=== PATIENT | female | born 1995 | race Caucasian/White ===

== ENCOUNTER → 2016-08-13 | Outpatient (CLI) | payer BC ==
[2016-08-13 12:00] LABS: URINE APPEARANCE CLEAR (CLEAR); URINE BILIRUBIN NEG (NEG); URINE COLOR YELLOW; URINE NITRITE POS (NEG); URINE SPECIFIC GRAVITY 1.021 (1.000-1.030); UROBILINOGEN NEG (NEG)
[2016-08-13 12:02] LABS: MANUAL MICROSCOPIC REQUIRED? NO; REVIEW REQ? NO
== END | disposition home or self-care (01) ==
LOC: C.LABSPEC 10:56
PROVIDERS: ATTEND Obstetrics & Gynecology
DX: Z34.00 Encounter for supervision of normal first pregnancy, unspecified trimester (principal)

== ENCOUNTER → 2016-08-20 | Outpatient (CLI) | payer BC ==
[2016-08-24 00:48] LABS: CHLAMYDIA TRACH RNA*** NOT DETECTED (NOT DETECTED); GC (NEIS GONORRHOEAE)RNA** NOT DETECTED (NOT DETECTED)
== END | disposition home or self-care (01) ==
LOC: C.LABSPEC 17:00
PROVIDERS: ATTEND Obstetrics & Gynecology
DX: Z34.00 Encounter for supervision of normal first pregnancy, unspecified trimester (principal)

== ENCOUNTER → 2016-08-20 | Outpatient (CLI) | payer BC ==
[2016-08-20 16:33] LABS: BASO % 0.3 %; BASO ABS # 0.03 K/uL (0-0.2); COMPLETE YES; HEMATOCRIT 39.4 % (37-47); IG% 0.3 %; LYMPH % 19.6 %; LYMPH ABS # 2.12 K/uL (1.2-3.4); MEAN CELL VOLUME 78.5 fL (80-100); MEAN CORPUSCULAR HEMOGLOBIN 27.1 pg (25-34); MEAN CORPUSCULAR HGB CONC 34.5 g/dl (32-36); MEAN PLATELET VOLUME 9.7 fL (7.4-10.4); MONO % 7.7 %; NEUT % 71.1 %; PLATELET COUNT 341 K/uL (130-400); RED BLOOD COUNT 5.02 M/uL (4.2-5.4); WHITE BLOOD COUNT 10.83 K/uL (4.8-10.8)
== END | disposition home or self-care (01) ==
LOC: C.LAB1850 15:13
PROVIDERS: ATTEND Obstetrics & Gynecology
DX: Z34.00 Encounter for supervision of normal first pregnancy, unspecified trimester (principal)

== ENCOUNTER → 2016-09-17 | Outpatient (CLI) | payer BC ==
[2016-09-17 18:19] LABS: URINE APPEARANCE TURBID (CLEAR); URINE BILIRUBIN NEG (NEG); URINE COLOR DK YELLOW; URINE EPITHELIAL CELL AUTO >30 /lpf (0-5); URINE NITRITE NEG (NEG); URINE SPECIFIC GRAVITY 1.031 (1.000-1.030); UROBILINOGEN NEG (NEG)
[2016-09-17 18:20] LABS: MANUAL MICROSCOPIC REQUIRED? NO; REVIEW REQ? NO
== END | disposition home or self-care (01) ==
LOC: C.LABSPEC 17:39
PROVIDERS: ATTEND Obstetrics & Gynecology
DX: O23.40 Unspecified infection of urinary tract in pregnancy, unspecified trimester (principal)

== ENCOUNTER → 2016-10-13 | Outpatient (CLI) | payer BC ==
[2016-10-13 17:27] LABS: GTGD 50 Grams
== END | disposition home or self-care (01) ==
LOC: C.LAB1850 15:08
PROVIDERS: ATTEND Obstetrics & Gynecology
DX: Z34.01 Encounter for supervision of normal first pregnancy, first trimester (principal)

== ENCOUNTER → 2016-11-03 | Outpatient (CLI) | payer BC, OTHER | END | disposition home or self-care (01) | LOC: C.LAB1850 08:04 | PROVIDERS: ATTEND Obstetrics & Gynecology | DX: O28.1 Abnormal biochemical finding on antenatal screening of mother (principal); Z3A.00 Weeks of gestation of pregnancy not specified ==

== ENCOUNTER → 2017-01-05 | Outpatient (CLI) | payer BC, OTHER ==
[2017-01-05 13:19] LABS: HEMATOCRIT 34.7 % (37-47)
[2017-01-05 15:31] LABS: URINE APPEARANCE CLOUDY (CLEAR); URINE BILIRUBIN NEG (NEG); URINE COLOR YELLOW; URINE EPITHELIAL CELL AUTO >30 /lpf (0-5); URINE NITRITE NEG (NEG); URINE PH >= 9.0 (4.5-7.5); URINE SPECIFIC GRAVITY 1.018 (1.000-1.030); UROBILINOGEN NEG (NEG)
[2017-01-05 15:34] LABS: MANUAL MICROSCOPIC REQUIRED? NO; REVIEW REQ? NO
== END | disposition home or self-care (01) ==
LOC: C.LAB1850 11:20
PROVIDERS: ATTEND Obstetrics & Gynecology
DX: Z34.03 Encounter for supervision of normal first pregnancy, third trimester (principal)

== ENCOUNTER → 2017-03-02 | Outpatient (CLI) | payer BC, OTHER | END | disposition home or self-care (01) | LOC: C.LABSPEC 10:20 | PROVIDERS: ATTEND Obstetrics & Gynecology | DX: Z34.03 Encounter for supervision of normal first pregnancy, third trimester (principal) ==

== ENCOUNTER 2017-03-28 06:21 | Inpatient (IN) | payer BC, OTHER ==
[~2017-03-28] VITALS: Ht 165.1 cm; Wt 114.5 kg
[2017-03-28 07:03] LABS: HEMATOCRIT 37.7 % (37-47); HEMOGLOBIN 12.3 g/dL (12.0-16.0); MEAN CELL VOLUME 77.6 fL (80-100); MEAN CORPUSCULAR HEMOGLOBIN 25.3 pg (25-34); MEAN CORPUSCULAR HGB CONC 32.6 g/dl (32-36); PLATELET COUNT 188 K/uL (130-400); RED CELL DISTRIBUTION WIDTH CV 14.2 % (11.5-14.5); RED CELL DISTRIBUTION WIDTH SD 39.9 fL (36.4-46.3); WHITE BLOOD COUNT 9.33 K/uL (4.8-10.8)
[2017-03-28 07:14] VITALS: Ht 165.1 cm; Wt 114.5 kg
[2017-03-28] MEDS ORDERED: PRENTAB26 PO (07:20)
[2017-03-28] MEDS ORDERED: LACTATED RINGER'S 1000ML 500 ML IV PRN ×2 (08:37→14:03)
[2017-03-28] MEDS ORDERED: OXYTOCIN 30 UNITS/500ML NSS IV PRN (08:45)
[2017-03-28] MEDS ORDERED: PATIENT'S ALLERGY INFO NEEDS ENTERED SCH (09:00)
[2017-03-28] MEDS: LACTATED RINGER'S 1000ML 1,000 ML IV SCH ×3 (10:00→21:51)
[2017-03-28] MEDS ORDERED: EpHEDrine SULFATE INJ 50 MG/ML AMP ONE (13:13)
[2017-03-28] MEDS ORDERED: BUPIVACAINE 0.25% 30 ML VIAL ONE (13:13)
[2017-03-28] MEDS ORDERED: FENTANYL 2MCG/ML ROPIV 1.25MG/ML 100ML BAG EPI ONE (13:15)
[2017-03-28] MEDS ORDERED: FENTANYL CITRATE INJ 50 MCG/1 ML 2 ML VIAL ONE (13:15)
[2017-03-28] MEDS ORDERED: NALOXONE HCL INJ 1 MG in SODIUM CHLORIDE 0.9% 1000ML 1,000 ML IV PRN (14:03)
[2017-03-28] MEDS ORDERED: ONDANSETRON INJ 2 MG/ML 2 ML VIAL IV PRN (14:15)
[2017-03-28] MEDS ORDERED: NALBUPHINE HCL INJ 10 MG/ML AMP IV PRN (14:15)
[2017-03-28] MEDS ORDERED: NALOXONE HCL INJ 0.4 MG/1 ML VIAL/CARP IV PRN (14:15)
[2017-03-28] MEDS ORDERED: DiphenhydrAMINE HCL 50 MG/ML VIAL IV PRN (14:15)
[2017-03-28] MEDS ORDERED: EpHEDrine SULFATE INJ 50 MG/ML AMP IV PRN (14:15)
[2017-03-28] MEDS: FENTANYL 2MCG/ML ROPIV 1.25MG/ML 100ML BAG EPI PRN ×2 (19:13→21:52)
[2017-03-28] MEDS ORDERED: ONDA4TAB46 PO (23:24)
[2017-03-29] VITALS (9 sets, daily range): BP systolic 108–131; BP diastolic 61–79; PULSE 78–106; TEMP 36.5–37.1; O2SAT 97–99
[2017-03-29] MEDS ORDERED: ACETAMINOPHEN 650 MG SUPP PR STA (00:53)
[2017-03-29] MEDS ORDERED: BUPIVACAINE 0.25% 30 ML VIAL ONE (00:54)
[2017-03-29] MEDS ORDERED: ACETAMINOPHEN 650 MG SUPP PR ONE (00:56)
[2017-03-29] MEDS ORDERED: LACTATED RINGER'S 1000ML 1,000 ML IV SCH (03:25)
[2017-03-29] MEDS ORDERED: DIPHTHERIA/TETANUS/PERTUSSIS 0.5 ML SYR/VIAL IM. ONE (03:30)
[2017-03-29] MEDS ORDERED: BENZOCAINE 20% AER SPR 82.5 GM CAN EXT PRN (03:30)
[2017-03-29] MEDS ORDERED: LANOLIN OINT EXT PRN (03:30)
[2017-03-29] MEDS ORDERED: SUPERCREAM 0.870 % 15GM JAR EXT PRN (03:30)
[2017-03-29] MEDS ORDERED: OXYTOCIN 30 UNITS/500ML NSS IV PRN (03:30)
[2017-03-29] MEDS ORDERED: HYDROCORTISONE ACETATE 25 MG SUPP PR PRN (03:30)
[2017-03-29] MEDS ORDERED: ACETAMINOPHEN 325 MG TAB PO PRN (03:30)
--- NOTE | 2017-03-29 05:05 | DELIVERY SUMMARY ---
DATE OF OPERATION: 03/29/2017 PREOPERATIVE DIAGNOSES: 1. Adorno intrauterine at 40 weeks. 2. Group B strep negative. 3. Premature rupture of membranes with induction of labor. POSTOPERATIVE DIAGNOSES: Same. PROCEDURE: Spontaneous vaginal delivery with repair of right periurethral laceration. SURGEON: Estefani Arteaga MD. ROLL FORMER: None. ESTIMATED BLOOD LOSS: 350. COMPLICATIONS: None. DISPOSITION: Stable in labor and delivery. DESCRIPTION: Faith is a 21-year-old G1, P0 who was admitted with broken water early in the morning of March 28. The patient was initially 2 cm and ambulation for several hours did not encourage change of the cervix. Therefore, she was started on Pitocin. Pitocin was run through the day on March 28. Initially was very slow change and ultimately an IUPC was placed. Pitocin was titrated upwards for adequate MVU's and eventually cervical change did progress. The patient reached complete dilation with an urge to push early in the morning of March 29. She pushed very well and brought the head of the baby quickly to . I prepped for delivery, washed the perineum and through the next two pushes, the patient was able to deliver the head easily. There was a nuchal cord. The patient's pushing at this point was rather uncontrolled and I was unable to reduce the cord until the baby's trunk was mostly delivered. At that point, the cord was finally able to be reduced and the baby was making crying sounds even before its legs have been delivered from the vagina. The baby was placed on the maternal abdomen. The cord was doubly clamped and cut by the father of the baby. Placenta delivered spontaneously and was intact with a 3-vessel cord. Examination of the cervix, vagina and perineum revealed no posterior lacerations however there was a right periurethral laceration that was non-hemostatic. This was repaired using 3-0 Vicryl suture in a running locked manner with a single crown type suture placed at the inferior edge to control a small arterial bleeder. Once complete hemostasis had been achieved, the repair was considered complete. The patient is currently in stable condition having tolerated her delivery well. I attest to the content of the Intraoperative Record and any orders documented therein. Any exception s are noted below.
[2017-03-29] MEDS: IBUPROFEN 600 MG TAB PO PRN ×4 (05:07→20:23)
--- NOTE | 2017-03-29 06:10 | Discharge Instructions ---
Discharge Instructions Date of Service Mar 29, 2017. Admission Reason for Admission: LABOR Discharge Discharge Diagnosis / Problem: Vaginal Delivery Discharge Goals Goal(s): Routine recovery after delivery Medications Continue Dispensed Medications: supercream, dermaplast, tucks, lansinoh Activity Recommendations Activity Limitations: per Instructions/Follow-up section . Instructions / Follow-Up Instructions / Follow-Up ACTIVITY RECOMMENDATIONS: * Gradual return to full activity over the next 2-3 weeks. * No lifting - nothing heavier than baby over the next 2-3 weeks. * Do not engage in vigorous exercise, sexual activity or sports until cleared by your physician. * Do not drive or operate any motorized equipment until cleared by your physician. * You may shower/bathe daily. MEDICATIONS: For discomfort or pain, you may use Acetaminophen (Tylenol), Ibuprofen (Advil), or Naproxen (Aleve) following the package directions. For constipation you may use Colace following the package directions. BREAST CARE: If you are not breast feeding: * Wear a supportive bra 24 hours a day for one to two weeks. * Avoid stimulating your breasts and nipples as much as possible during the first few weeks after delivery. * When taking a shower, have the warm water hit your back, not breasts. * When your breasts feel full, apply ice packs. Usually three to four times a day helps ease the discomfort. * Take a mild pain medication (Tylenol / Motrin) when you are uncomfortable. If breast feeding: * Use breast milk to lubricate nipples. Lansinoh cream may be used for sore nipples. You do not need to remove cream prior to breast feeding. If using a different brand of cream, check the label for directions regarding removal of cream prior to nursing. * Wear a supportive bra. * If having problems with breasts or breast feeding, call a corporate consultant or your health care provider. EPISIOTOMY CARE: After delivery, if you have an episiotomy (stitches), the following steps will ease discomfort and aid healing. * For the first 24 hours after delivery, place ice packs next to your episiotomy to help reduce swelling. * After the first 24 hour-period, sitz baths, either portable or in the tub, are suggested. A shower with a shower arm sprayed over the episiotomy may be comforting. * Sakina care should be done after each voiding and bowel movement. Squirt warm water from a plastic bottle over the perineum (region of the body between the anus and urinary opening) and pat dry. * Use Dermoplast to ease discomfort. Shake container. [place] directly over the episiotomy. Place a Tucks on a clean sanitary pad next to your episiotomy. SPECIAL CARE INSTRUCTIONS: When you are discharged from the hospital, it is important for you to follow the instructions listed below: * During the first week at home, you should be able to care for yourself and your baby. In addition, the usual light household activities are encouraged. * Limit your activities to the way you feel. Do not try to clean the house or move furniture. Be sensible. * If you actively engage in sports and have done so up until the time of your delivery, you may resume these activities as soon as you feel able. This may take up to one month or even longer. Use good judgment. * Continue to take your vitamins for at least six weeks after the of your baby. * Your diet need not be limited unless you were on a special diet before your delivery. Breast-feeding mothers need around 2500 calories per day and at least 64-80 ounces of fluid per day (8 to 10 glasses). * You should eat foods from the four major food groups. Crash diets or fad diets are to be avoided. Eating lean meats, fresh fruits and vegetables, low-fat dairy products, high fiber foods and a regular exercise program, will help you get back to your pre- weight without putting your health at risk. * Constipation is sometimes a problem after delivery. Take a mild laxative as needed. If breast feeding, Milk of Magnesia is acceptable to use. You may use a suppository or Fleets enema if no episiotomy. * A daily shower or tub bath is suggested. Be sure to thoroughly and gently dry the perineum. * A bloody vaginal discharge will usually continue until around four weeks post . A small amount of bleeding may continue for as long as six weeks. Vaginal discharge changes from the bright red bleeding after delivery to pink then brownish and finally yellowish-pink before becoming white and disappearing. * Bleeding may increase with activity. Your first period may come in 4-8 weeks. If you are breast feeding, your period may be delayed even longer. * Carrizozo (sex) can begin whenever both you and your partner feel comfortable and do not have any form of genital infection. It is recommended that you wait at least six weeks for internal and external healing to occur. If you have questions, please talk to your health care practitioner. A condom should be used to prevent infection and . * Foreplay, gentle intercourse and lubrication is very important the first several times to prevent pain. A water-based lubricant such as K-Y jelly or Astroglide may be used. * If you have RH negative blood and your baby is RH positive, you will receive RHOGAM by injection prior to discharge. The nurse will give you a card to keep with you that has the date and place that you received RHOGAM after delivery. * During your care, you had a Rubella screen done to check for the presence of rubella antibodies in your blood. If your test was negative, you will receive a Rubella vaccine prior to discharge. This vaccine may cause a fever, soreness at the injection site and flu-like symptoms. If these symptoms persist, notify your health care practitioner. is not advised for one month after a Rubella vaccine. * Verbalizes understanding of car seat law as reviewed with patient nursing. * Car Seat hand-out given and reviewed with patient by nursing. * Shaken baby information reviewed with patient by nursing. Call you doctor if: * Heavy bleeding (saturating several pads an hour) or passing clots the size of your fist. * A fever >101 degrees F (38.3 degrees C) on two occasions four hours apart and /or chills. * Unusual pain in the pelvic or vaginal areas. * "Baby Blues" lasting longer than two weeks. If you have any questions or concerns, call your health care practitioner at . FOLLOW UP VISIT: * Please call the office at to schedule a 6 week examination. It is important you keep this appointment. It is important for you to make arrangements for either yearly or twice yearly check-ups thereafter. Current Hospital Diet Patient's current hospital diet: Regular OB Diet Discharge Diet Recommended Diet: Regular Diet Pending Studies Studies pending at discharge: no Medical Emergencies . Who to Call and When: Medical Emergencies: If at any time you feel your situation is an emergency, please call 911 immediately. . Non-Emergent Contact Non-Emergency issues call your: Primary Care Provider . . "Provider Documentation" section prepared by Von Lambert. . VTE Core Measure Inpt VTE Proph given/why not?: Treatment not indicated
--- NOTE | 2017-03-29 07:07 | Anesthesia Procedure Note ---
Anesthesia Epidural Removal Nt Date & Time Mar 29, 2017 at 07:07 Vital Signs Pain Intensity: 3.0 Vital Signs Past 12 Hours Date Time Temp Pulse Resp B/P (MAP) Pulse Ox O2 Delivery O2 Flow Rate FiO2 03/29/17 05:50 37.1 106 18 130/79 (96) Room Air 03/29/17 05:50 Room Air Notes Mental Status: alert / awake / arousable, participated in evaluation Nausea / Vomiting: adequately controlled Pain: adequately controlled Airway Patency, RR, SpO2: stable & adequate BP & HR: stable & adequate Hydration State: stable & adequate Neuraxial Anesthesia: was administered, sensory block is resolved Anesthetic Complications: no major complications apparent, pt satisfied with anesthetic care Epidural: removed without complications, with tip intact
[2017-03-29] MEDS: DOCUSATE SODIUM 100 MG CAP PO SCH ×2 (08:23→20:20)
[2017-03-29] MEDS: PRENATAL VITAMIN TAB PO SCH (08:23)
[2017-03-30 00:10] VITALS: BP 109/71; PULSE 90; TEMP 36.6
[2017-03-30] MEDS: IBUPROFEN 600 MG TAB PO PRN ×4 (00:45→23:30)
[2017-03-30 04:25] VITALS: BP 121/76; PULSE 90; TEMP 36.6
--- NOTE | 2017-03-30 06:43 | Progress Note ---
Subjective Mar 30, 2017. Subjective conversation w/ patient, physical exam, lab review Ambulation: ambulating normally Passing Gas: Yes Diet Tolerance: Regular Diet Lochia: Moderate Objective Vital Signs Date Time Temp Pulse Resp B/P (MAP) Pulse Ox O2 Delivery O2 Flow Rate FiO2 03/30/17 04:25 36.6 90 18 121/76 (91) Room Air 03/30/17 00:10 36.6 90 18 109/71 (84) Room Air 03/30/17 00:10 Room Air 03/29/17 20:15 36.5 82 18 108/68 (81) Room Air 03/29/17 15:50 99 Room Air 03/29/17 15:50 36.5 78 16 117/76 (90) 99 Room Air 03/29/17 11:30 36.6 87 14 110/72 (85) 98 Room Air 03/29/17 11:24 36.6 87 14 110/72 (85) 98 Room Air 03/29/17 11:09 36.6 89 16 131/61 (84) 98 Room Air 03/29/17 09:14 97 Room Air 03/29/17 08:15 Room Air 03/29/17 08:15 36.8 99 14 117/73 (88) 97 Room Air 03/29/17 07:38 36.8 99 14 117/73 (88) 97 Room Air Physical Exam General Appearance: WELL-APPEARING Abdomen: non tender Fundus: Firm Extremities: no calf tenderness Laboratory Results Last 24 Hours Test 03/30/17 04:44 Assessment and Plan Post- Day#: 1 Continue Routine Care: Doing well no extremity pain ambulating well
[2017-03-30 07:21] LABS: HEMATOCRIT 30.6 % (37-47)
[2017-03-30] MEDS: PRENATAL VITAMIN TAB PO SCH (07:54)
[2017-03-30] MEDS: DOCUSATE SODIUM 100 MG CAP PO SCH ×2 (07:54→19:41)
[2017-03-30] MEDS: OXYCODONE/ACETAMINOPHEN 5-325 TAB PO PRN ×3 (07:55→16:16)
[2017-03-30 08:30] VITALS: BP 121/75; PULSE 74; TEMP 36.4
[2017-03-30 15:15] VITALS: BP 117/74; PULSE 80; TEMP 36.7; O2SAT 98
[2017-03-30 20:20] VITALS: BP 120/82; PULSE 82; TEMP 36.6; O2SAT 99
[2017-03-30 23:20] VITALS: BP 110/69; PULSE 76; TEMP 36.7
[2017-03-31] MEDS: IBUPROFEN 600 MG TAB PO PRN ×3 (03:48→13:24)
[2017-03-31] MEDS: TROLAMINE SALICYLATE 10% CRM 255 APPLN/85 GM TUBE EXT PRN ×2 (04:56→07:12)
--- NOTE | 2017-03-31 06:36 | Progress Note ---
Subjective Mar 31, 2017. Subjective conversation w/ patient (Patient seen and examined at bedside) Ambulation: ambulating normally Voiding: no voiding problems Diet Tolerance: Regular Diet Lochia: Moderate Feeding Type: Bottle Feeding Pain: mild cramping, relieved by motrin Comment: Also reports an unrelenting headache Review of Systems Constitutional: No fever, No chills, No sweats Respiratory: No cough, No shortness of breath Cardiac: No chest pain Abdomen: No nausea, No vomiting Female : No dysuria Objective Vital Signs Date Time Temp Pulse Resp B/P (MAP) Pulse Ox O2 Delivery O2 Flow Rate FiO2 03/30/17 23:20 36.7 76 18 110/69 (83) Room Air 03/30/17 23:20 Room Air 03/30/17 20:20 36.6 82 18 120/82 (95) 99 Room Air 03/30/17 15:15 98 Room Air 03/30/17 15:15 36.7 80 18 117/74 (88) 98 Room Air 03/30/17 08:30 36.4 74 18 121/75 (90) Room Air 03/30/17 08:30 Room Air Physical Exam General Appearance: WELL-APPEARING, WD/WN, NO APPARENT DISTRESS Respiratory/Chest: chest non-tender, lungs clear, normal breath sounds Cardiovascular: regular rate, rhythm, no edema, no gallop, no murmur Abdomen: normal bowel sounds, non tender, soft Fundus: Firm, Non-Tender, Relation to Umbilicus (1 above) Extremities: normal inspection, no pedal edema, no calf tenderness Laboratory Results Last 24 Hours Test 03/30/17 06:47 Hemoglobin 10.0 g/dL Hematocrit 30.6 % Medications Current Inpatient Medications Medications (Trade) Dose Ordered Sig/Jesus Route Start Time Stop Time Status Last Admin Dose Admin Lactated Ringer's 1,000 ml @ 125 mls/hr Q8H IV 03/29/17 03:25 04/28/17 03:24 Oxytocin (Pitocin IV) 30 units UD PRN IV 03/29/17 03:30 04/28/17 03:29 Benzocaine (Dermoplast Aero Spr) 1 appln PRN PRN EXT 03/29/17 03:30 04/28/17 03:29 Cocaine HCl (Supercream 0.870% Cr) BID PRN EXT 03/29/17 03:30 04/12/17 03:29 03/29/17 16:14 15 GM Hydrocortisone Acetate (Anusol Hc Supp) 25 mg BID PRN LA 03/29/17 03:30 04/28/17 03:29 Lanolin (Lanolin Oint) PRN PRN EXT 03/29/17 03:30 04/28/17 03:29 Prenat Multivit/ Pediatric Physician Assistant/Iron/Folic Ac ( Vitamin Tab) 1 tab DAILY PO 03/29/17 08:00 04/28/17 07:59 03/30/17 07:54 1 TAB Ibuprofen (Motrin Tab) 600 mg Q4H PRN PO 03/29/17 03:30 04/28/17 03:29 03/31/17 03:48 600 MG Acetaminophen (Tylenol Tab) 650 mg Q6H PRN PO 03/29/17 03:30 04/28/17 03:29 03/30/17 19:42 650 MG Oxycodone/ Acetaminophen (Percocet 5-325mg Tab) 1 tab Q4H PRN PO 03/29/17 03:30 04/12/17 03:29 03/30/17 16:16 1 TAB Docusate Sodium (coLACE CAP) 100 mg BID PO 03/29/17 08:00 04/28/17 07:59 03/30/17 19:41 100 MG Trolamine Salicylate (Myoflex Cream) 1 appln DAILY PRN EXT 03/31/17 04:00 04/30/17 03:59 03/31/17 04:56 1 APPLN Assessment and Plan Post- Day#: 2 Continue Routine Care: 21 year old s/p NVD day 2 - pt doing well clinically - O+, GBS -ve and rubella immune - vitals reviewed and wnl - continue to encourage ambulation - motrin prn for pain - Hgb reviewed. 12.3 -> 10 - headache -> will check cbc and cmp to ensure this is not an atypical presentation of pre-eclampsia - review d/c instructions as pt ready for d/c today Resident Physician Supervision Note: I was present with Dr. Lambert during the history and exam. I discussed the case with the resident and agree with the findings and plan as documented in the note. Any exceptions or clarifications are listed here: PPD#2. Complains of headache - sounds like spinal headache, neck and head pain. Tried [place]- like cream overnight, helped neck some but not head. BP and platelets wnl, pending CMP to r/o preeclampsia. Anesthesia to see. Documented By: Laila Quevedo Resident Tracking Resident Involvement: Resident Care Provided Care Provided: OB Delivery
[2017-03-31 07:30] VITALS: BP 118/78; PULSE 85; TEMP 36.5; O2SAT 98
[2017-03-31 07:54] LABS: BASO % 0.3 %; BASO ABS # 0.03 K/uL (0-0.2); EOS % 1.6 %; EOS ABS # 0.18 K/uL (0-0.5); HEMATOCRIT 31.4 % (37-47); HEMOGLOBIN 10.3 g/dL (12.0-16.0); IG# 0.11 K/uL (0.00-0.02); LYMPH % 16.4 %; LYMPH ABS # 1.83 K/uL (1.2-3.4); MEAN CELL VOLUME 78.1 fL (80-100); MEAN CORPUSCULAR HEMOGLOBIN 25.6 pg (25-34); MEAN CORPUSCULAR HGB CONC 32.8 g/dl (32-36); MEAN PLATELET VOLUME 9.4 fL (7.4-10.4); MONO % 5.1 %; MONO ABS # 0.57 K/uL (0.11-0.59); NEUT % 75.6 %; NEUT ABS # 8.47 K/uL (1.4-6.5); PLATELET COUNT 187 K/uL (130-400); RED CELL DISTRIBUTION WIDTH CV 14.4 % (11.5-14.5); RED CELL DISTRIBUTION WIDTH SD 40.9 fL (36.4-46.3); WHITE BLOOD COUNT 11.19 K/uL (4.8-10.8)
[2017-03-31 08:15] LABS: ALBUMIN 2.3 gm/dl (3.4-5.0); CALCIUM 8.5 mg/dl (8.5-10.1); CREATININE 0.63 mg/dl (0.60-1.20); POTASSIUM 3.7 mmol/L (3.5-5.1)
[2017-03-31 08:17] LABS: TOTAL PROTEIN 6.2 gm/dl (6.4-8.2)
[2017-03-31] MEDS: PRENATAL VITAMIN TAB PO SCH (08:19)
[2017-03-31] MEDS: DOCUSATE SODIUM 100 MG CAP PO SCH (08:19)
--- NOTE | 2017-03-31 11:20 | Anesthesiology Progress Note ---
Anesthesia Progress Note Date of Service Mar 31, 2017. Progress Notes Epidural Blood Patch: Patient was brought to preoperative holding area and placed on STD ASA monitors with a free flowing IV. The procedure risks, hazards and alternatives were discussed with the patient and a proper consent was obtained and placed in the chart. The patient was placed in the sitting position and the skin was prepped and draped in a sterile classical fashion. Excess cleansing solution was removed from the skin. A tourniquet was also placed around the upper left arm by MANAGER [employer]SPORT and the wrist was prepped and draped in a sterile classical fashion. Local anesthesia was infiltrated subcutaneous and an 18-gauge Tuohy needle was then placed in the epidural space on the first pass utilizing loss of resistance technique with an air filled syringe. 20 cc of autologous blood was withdrawn from the vein in a sterile fashion. This was then injected into the epidural space in aliquots of 5 cc with negative aspiration prior to each injection. A total of 15ml of blood was injected. The patient was placed in a recumbent position for another 30 to 60 minutes before being allowed to sit up and ambulate. The patient tolerated the procedure well without any apparent difficulties or complications. She was transferred back to her room by transportation service in stable condition with already obtaining relief from the procedure. VSS. She was instructed to not lift anything heavier than her child for several days and also to go to ER with return of severe headache or any other s/s concerning to include dizziness, syncope, lightheadedness, new neurological deficits. All questions were answered.
[2017-03-31 12:00] VITALS: BP 121/81; PULSE 64; TEMP 36.3; O2SAT 100
[2017-03-31 12:41] VITALS: BP 121/81; PULSE 64; TEMP 36.3; O2SAT 100
[2017-04-01] MEDS ORDERED: IBUP-103 PO (15:21)
[2017-04-01] MEDS ORDERED: FERR50TA3 PO (23:24)
== END 2017-03-31 14:11 | disposition home or self-care (01) | DRG 775 ==
LOC: C.LD 06:21 → C.OPB 06:21 → C.LD 06:39 → C.OBG 03-29 05:45
PROVIDERS: ADMIT Obstetrics & Gynecology; ATTEND Obstetrics & Gynecology
PROC: 0UQMXZZ Repair Vulva, External Approach (ICD-10-PCS; principal; 2017-03-29)
PROC: 10E0XZZ Delivery of Products of Conception, External Approach (ICD-10-PCS; principal; 2017-03-29)
DX: O69.81X1 Labor and delivery complicated by cord around neck, without compression, fetus 1 (principal); O71.82 Other specified trauma to perineum and vulva; Z37.0 Single live birth; Z3A.40 40 weeks gestation of pregnancy

== ENCOUNTER 2017-04-01 13:40 | Emergency (ER) | payer BC, OTHER ==
[~2017-04-01] VITALS: Ht 165.1 cm; Wt 107.1 kg
[~2017-04-01 13:40] MED LIST: ONDA4TAB46 PO; PRENTAB26 PO
[2017-04-01 13:45] VITALS: Ht 165.1 cm; Wt 107.1 kg
[2017-04-01] MEDS ORDERED: PROCHLORPERAZINE 5 MG/ML 2 ML VIAL IV STA (15:19)
[2017-04-01] MEDS ORDERED: CAFFEINE CITRATE 500 MG in SODIUM CHLORIDE 0.9% 1000ML 1,000 ML IV STA (15:19)
[2017-04-01] MEDS ORDERED: MoRPHine SULFATE 10 MG/ML CARP/VIAL IV STA (15:19)
[2017-04-01] MEDS ORDERED: MAGNESIUM SULFATE 1GM / D5W 1 GM BAG IV STA (15:19)
[2017-04-01] MEDS ORDERED: DiphenhydrAMINE HCL 50 MG/ML VIAL IV STA (15:19)
[2017-04-01] MEDS ORDERED: SODIUM CHLORIDE 0.9% 1000ML 1,000 ML IV STA (15:19)
[2017-04-01] MEDS ORDERED: IBUP-103 PO (15:21)
[2017-04-01] MEDS ORDERED: MoRPHine SULFATE 4 MG/ML 1 ML CARP\\VIAL ONE (15:59)
--- NOTE | 2017-04-01 16:05 | EMERGENCY ROOM VISIT NOTE ---
History Report prepared by Ivana: Jacob Hudson Under the Supervision of: Dr. Jose Guadalupe Wiseman M.D. First contact with patient: 14:53 Chief Complaint: HEADACHE Stated Complaint: HEADACHE, POST CHILD /EPIDURAL History of Present Illness The patient is a 21 year old female who presents to the Emergency Room with complaints of an intermittent headache starting a few days ago. The patient reports she is 1 week post child , and she was given an epidural. She states that her pain is worsened with sitting up or standing, and it is relieved with laying down. She states that she had a blood patch done yesterday , and she has been increasing her fluid intake and caffeine intake. She notes that she is having some mild vaginal bleeding, though she denies any vaginal discharge. The patient reports that everything went well with the . She states that Motrin has helped with the pain. Source of History: patient Onset: a few days ago Position: head Timing: intermittent Modifying Factors (Worsening): other (sitting up and standing) Modifying Factors (Relieving): other (laying down) Note: Associated symptoms: Vaginal bleeding. Review of Systems See HPI for pertinent positives & negatives. A total of 10 systems reviewed and were otherwise negative. Past Medical & Surgical Medical Problems: (1) UTI (urinary tract infection) Social History Smoking Status: Never Smoker Marital Status: Housing Status: lives with family Occupation Status: student Current/Historical Medications Scheduled Ferrous Sulfate (Iron (Ferrous Sulfate)), 1 TAB PO DAILY Multivit/Min/Iron/Fol Ac/Pren ( Vitamin), 1 TAB PO DAILY Scheduled PRN Ibuprofen Tab (Advil), 1,000 MG PO Q4 PRN for Headache Allergies Coded Allergies: No Known Allergies (Unverified , 04/01/17) Physical Exam Vital Signs Date Time Temp Pulse Resp B/P (MAP) Pulse Ox O2 Delivery O2 Flow Rate FiO2 04/01/17 19:36 78 20 119/78 99 Room Air 04/01/17 18:54 36.8 64 16 140/87 (104) 100 Room Air 04/01/17 17:15 78 16 137/81 (99) 100 Room Air 04/01/17 16:51 71 20 129/77 96 Room Air 04/01/17 16:04 71 20 133/111 100 Room Air 04/01/17 13:45 36.7 101 18 138/101 96 Room Air Physical Exam GENERAL: Patient is a healthy-appearing well-nourished female HEAD: Normocephalic atraumatic EYES: Ocular movements intact pupils equal and react to light OROPHARYNX mucous membranes are moist no exudates present no erythema or edema present NECK: Supple no nuchal rigidity. No evidence of meningitis or encephalitis. CHEST: Good equal expansion LUNGS: Clear and equal to auscultation CARDIAC: Normal S1 and S2 ABDOMEN: Soft nontender no guarding BACK: No CVA tenderness EXTREMITIES: No pain upon palpation normal muscle strength in all groups no clubbing cyanosis or edema NEURO: Patient is following commands and answering questions appropriately. Alert and oriented x3 Cranial Nerves 2-12 grossly intact Medical Decision & Procedures Laboratory Results 04/01/17 15:30 Red Blood Count 4.44, Mean Corpuscular Volume 77.9, Mean Corpuscular Hemoglobin 25.0, Mean Corpuscular Hemoglobin Concent 32.1, Mean Platelet Volume 9.5, Neutrophils (%) (Auto) 71.0, Lymphocytes (%) (Auto) 19.5, Monocytes (%) (Auto) 5.7, Eosinophils (%) (Auto) 2.5, Basophils (%) (Auto) 0.3, Neutrophils # (Auto) 7.24, Lymphocytes # (Auto) 1.99, Monocytes # (Auto) 0.58, Eosinophils # (Auto) 0.25, Basophils # (Auto) 0.03 04/01/17 15:30 Test 04/01/17 15:30 White Blood Count 10.19 K/uL (4.8-10.8) Red Blood Count 4.44 M/uL (4.2-5.4) Hemoglobin 11.1 g/dL (12.0-16.0) Hematocrit 34.6 % (37-47) Mean Corpuscular Volume 77.9 fL (80-100) Mean Corpuscular Hemoglobin 25.0 pg (25-34) Mean Corpuscular Hemoglobin Concent 32.1 g/dl (32-36) Platelet Count 263 K/uL (130-400) Mean Platelet Volume 9.5 fL (7.4-10.4) Neutrophils (%) (Auto) 71.0 % Lymphocytes (%) (Auto) 19.5 % Monocytes (%) (Auto) 5.7 % Eosinophils (%) (Auto) 2.5 % Basophils (%) (Auto) 0.3 % Neutrophils # (Auto) 7.24 K/uL (1.4-6.5) Lymphocytes # (Auto) 1.99 K/uL (1.2-3.4) Monocytes # (Auto) 0.58 K/uL (0.11-0.59) Eosinophils # (Auto) 0.25 K/uL (0-0.5) Basophils # (Auto) 0.03 K/uL (0-0.2) RDW Standard Deviation 40.5 fL (36.4-46.3) RDW Coefficient of Variation 14.4 % (11.5-14.5) Immature Granulocyte % (Auto) 1.0 % Immature Granulocyte # (Auto) 0.10 K/uL (0.00-0.02) Anion Gap 5.0 mmol/L (3-11) Est Creatinine Clear Calc Drug Dose 176.0 ml/min Estimated GFR () > 150.0 Estimated GFR (Non- 129.8 BUN/Creatinine Ratio 10.6 (10-20) Calcium Level 8.8 mg/dl (8.5-10.1) Total Bilirubin 0.2 mg/dl (0.2-1) Direct Bilirubin < 0.1 mg/dl (0-0.2) Aspartate Amino Transf (AST/SGOT) 12 U/L (15-37) Alanine Aminotransferase (ALT/SGPT) 18 U/L (12-78) Alkaline Phosphatase 164 U/L (45-117) Total Protein 6.8 gm/dl (6.4-8.2) Albumin 2.5 gm/dl (3.4-5.0) Lipase 73 U/L (73-393) Labs reviewed by ED physician. Medications Administered Medications (Trade) Dose Ordered Sig/Jesus Route Start Time Stop Time Status Last Admin Dose Admin Sodium Chloride 1,000 ml @ 999 mls/hr Q1H1M STAT IV 04/01/17 15:19 04/01/17 16:19 DC 04/01/17 16:09 999 MLS/HR Prochlorperazine Edisylate (Compazine Inj) 10 mg NOW STAT IV 04/01/17 15:19 04/01/17 15:23 DC 04/01/17 16:08 10 MG Diphenhydramine HCl (Benadryl Inj) 50 mg NOW STAT IV 04/01/17 15:19 04/01/17 15:23 DC 04/01/17 16:08 50 MG Magnesium Sulfate (Magnesium Sulfate) 1 gm NOW STAT IV 04/01/17 15:19 04/01/17 15:24 DC 04/01/17 16:09 1 GM Morphine Sulfate (MoRPHine SULFATE INJ) 8 mg STK-MED ONCE .ROUTE 04/01/17 15:59 04/01/17 16:00 DC 04/01/17 16:08 8 MG ED Course 1453: Past medical records reviewed. The patient was evaluated in room B5. A complete history and physical examination was performed. 1519: Magnesium Sulfate 1gm IV, Benadryl 50mg IV, Compazine 10mg IV, Sodium Chloride 1000 ml @ 999 mls/hr IV 1552: I reevaluated the patient, and she was dong well though still having pain. 1559: Morphine Sulfate 8mg IV 1641: I discussed the patient's case with Dr. Samano, Anesthesiology, and he recommends sending the patient to the recovery room. 1908: Upon reexamination the patient is doing well. I discussed results and treatment plan with the patient. She verbalizes agreement and understanding. The patient is ready for discharge. Medical Decision Differential diagnosis: Etiologies such as migraine headache, meningitis, sinusitis, CO exposure, ICH, SAH, infection, tumor, headache, sinus thrombosis, arterial dissection, as well as others were entertained. This is a 21-year-old female who presents emergency department complaining of headache that is only present when she sits up or stands up. In addition the patient does not have any evidence of meningitis encephalitis on examination. An IV was established, the patient was given normal saline bolus, caffeine, Compazine, Benadryl, morphine. Repeat examination revealed much improvement patient's symptoms. I did discuss this case with the anesthesiologist cassandra consultant. He independently evaluated the patient. I feel the patient as well as to be discharged home for follow-up with primary care physician. Patient was in agreement with the treatment plan. Medication Reconcilliation Current Medication List: was personally reviewed by me Blood Pressure Screening Patient's blood pressure: Normal blood pressure Impression Primary Impression: Headache Scribe Attestation The scribe's documentation has been prepared under my direction and personally reviewed by me in its entirety. I confirm that the note above accurately reflects all work, treatment, procedures, and medical decision making performed by me. Departure Information Dispostion Home / Self-Care Referrals No Doctor, Assigned (PCP) Forms HOME CARE DOCUMENTATION FORM, IMPORTANT VISIT INFORMATION, School Instructions, Work Instructions Patient Instructions ED Headache Post Spinal Tap W Patch, My [facility] Additional Instructions Increase fluids next 48 hours You have been examined and treated today on an emergency basis only. This is not a substitute for, or an effort to provide, complete comprehensive medical care. It is impossible to recognize and treat all injuries or illnesses in a single emergency department visit. It is therefore important that you follow up closely with your PCP. Call as soon as possible for an appointment. Thank you for your time and consideration. I look forward to speaking with you again soon. Please don't hesitate to call us if you have any questions. Problem Qualifiers Primary Impression: Headache Headache type: unspecified Headache chronicity pattern: acute headache Intractability: not intractable Qualified Codes: R51 - Headache
[2017-04-01 16:18] LABS: BASO % 0.3 %; BASO ABS # 0.03 K/uL (0-0.2); EOS % 2.5 %; EOS ABS # 0.25 K/uL (0-0.5); HEMATOCRIT 34.6 % (37-47); HEMOGLOBIN 11.1 g/dL (12.0-16.0); LYMPH % 19.5 %; LYMPH ABS # 1.99 K/uL (1.2-3.4); MEAN CELL VOLUME 77.9 fL (80-100); MEAN CORPUSCULAR HGB CONC 32.1 g/dl (32-36); MEAN PLATELET VOLUME 9.5 fL (7.4-10.4); MONO % 5.7 %; MONO ABS # 0.58 K/uL (0.11-0.59); NEUT ABS # 7.24 K/uL (1.4-6.5); PLATELET COUNT 263 K/uL (130-400); RED CELL DISTRIBUTION WIDTH CV 14.4 % (11.5-14.5); RED CELL DISTRIBUTION WIDTH SD 40.5 fL (36.4-46.3); WHITE BLOOD COUNT 10.19 K/uL (4.8-10.8)
[2017-04-01 16:35] LABS: ALBUMIN 2.5 gm/dl (3.4-5.0); ALT/SGPT 18 U/L (12-78); AST/SGOT 12 U/L (15-37); BLOOD UREA NITROGEN 7 mg/dl (7-18); CALCIUM 8.8 mg/dl (8.5-10.1); CARBON DIOXIDE 25 mmol/L (21-32); CREATININE 0.62 mg/dl (0.60-1.20); GLUCOSE 74 mg/dl (70-99); LIPASE 73 U/L (73-393); POTASSIUM 3.8 mmol/L (3.5-5.1); SODIUM 139 mmol/L (136-145)
[2017-04-01 16:38] LABS: ALKALINE PHOSPHATASE 164 U/L (45-117); TOTAL PROTEIN 6.8 gm/dl (6.4-8.2)
[2017-04-01 18:54] VITALS: TEMP 36.8; O2SAT 100
--- NOTE | 2017-04-01 19:08 | Progress Note ---
Progress Note Date of Service Apr 01, 2017. Progress Note The patient came to the E.D. complaining of a headache which began three days ago after receiving an epidural for labor analgesia. The same night she complained of a severe headache whenever she sat or stood up. When she laid flat the headache resolved. The next day she was given an epidural blood patch which she says did not work. She came back to the E.D. with the same complaints today. I brought her to the PACU and after giving her informed consent she was placed in the sitting position, her back was prepped with betadine, her subcutaneous area was injected with 1% lidocaine 2 ml and a 17 gauge tuohy was inserted into the L3-4 epidural space using the AMARI technique. Autologous blood was drawn under sterile conditions and twenty ml were injected into the epidural space. She was laid flat and after one hour she sat up with minimal pain. She was instructed to take motrin for a mild headache and for any other problems to follow up with her private MD or return to the E.D.
[2017-04-01 19:36] VITALS: BP 119/78; PULSE 78; O2SAT 99
[2017-04-01] MEDS ORDERED: FERR50TA3 PO (23:24)
== END 2017-04-01 19:37 | disposition home or self-care (01) ==
LOC: C.EDB 13:42
DX: R51 Headache (principal)

== ENCOUNTER → 2017-05-18 | Outpatient (CLI) | payer BC, OTHER ==
[~2017-05-18] MED LIST changes: +FERR50TA3 PO; +IBUP-103 PO; -ONDA4TAB46 PO
== END | disposition home or self-care (01) ==
LOC: C.PAPS 16:13
PROVIDERS: ATTEND Obstetrics & Gynecology
DX: Z12.4 Encounter for screening for malignant neoplasm of cervix (principal)

== ENCOUNTER 2019-06-21 07:33 | Inpatient (IN) ==
[2019-06-21] MEDS ORDERED: OXYTOCIN 30 UNITS/500 ML BAG IV PRN ×2 (08:56)
--- NOTE | 2019-06-21 08:59 | Labor Progress Brief Note ---
Date of Service June 21, 2019 Subjective 24yo with SIUP @ 39w 1d for elective IOL due to anticipated lapse of insurance coverage in next few days. uncomplicated except for maternal obesity. No OB complaints on arrival. Specifically no s/sx PIH, questioned after noting 1+ protein on dip and borderline BPs, and patient denies all. Assessment & Plan (1) Encounter for elective induction of labor: Pitocin, AROM when able, epidural on request, anticipate . Physical Exam Physical Exam: /-2, soft/ant EFW 7lb FHT Cat 1 Irreg ctx not appreciated by patient. Results & Data Vital Signs (Past 12 Hours) Vital Signs Temp Pulse Resp BP 06/21/19 08:10 74 133/87 06/21/19 07:53 98.1 F 90 20 139/81 06/21/19 07:41 90 139/81 Coding Level of Care Code None Diagnoses Encounter for elective induction of labor Z34.90
[2019-06-21] MEDS: LACTATED RINGER'S 1,000 ML IV PRN ×2 (09:23→14:59)
[2019-06-21 09:38] LABS: Hematocrit (blood only) 34.3 % (37-47); Hemoglobin 11.5 g/dL (12.0-16.0); Mean Corpuscular Hemoglobin 26.1 pg (25-34); Platelet Count 213 K/uL (130-400); RDW Standard Deviation 39.5 fL (36.4-46.3); White Blood Count 9.21 K/uL (4.8-10.8)
[2019-06-21 11:00] LABS: Mean Corpuscular Hgb Conc 33.5 g/dL (32-36)
--- NOTE | 2019-06-21 14:20 | Labor Progress Brief Note ---
Date of Service June 21, 2019 Subjective Delayed entry due to patient care. Patient seen and examined a while ago, found to be tolerating contractions well. Assessment & Plan (1) Encounter for elective induction of labor: Epidural on request, continue curr mgmt of labor with pitocin and AROM, and anticipate . Physical Exam Physical Exam: AROM clear fluid FHT Cat 1 Results & Data Vital Signs (Past 12 Hours) Vital Signs Temp Pulse Resp BP 06/21/19 14:16 81 115/61 06/21/19 13:35 92 H 118/78 06/21/19 12:35 86 128/77 06/21/19 11:37 69 110/53 L 06/21/19 10:35 65 125/74 06/21/19 09:26 88 123/74 06/21/19 08:10 74 133/87 06/21/19 07:53 98.1 F 90 20 139/81 06/21/19 07:41 90 139/81 Coding Level of Care Code None Diagnoses Encounter for elective induction of labor Z34.90
[2019-06-21] MEDS ORDERED: ePHEDrine sulfate 50 MG/ML AMP ONE (14:45)
[2019-06-21] MEDS ORDERED: BUPIVACAINE 0.25% 30 ML VIAL ONE (14:45)
[2019-06-21] MEDS ORDERED: fentaNYL 2MCG/ML ROPIV 1.25MG/ML 100 ML BAG EPI ONE (14:46)
[2019-06-21] MEDS ORDERED: fentaNYL citrate 100 MCG/2 ML VIAL ONE (14:46)
[2019-06-21] MEDS ORDERED: fentaNYL 2MCG/ML ROPIV 1.25MG/ML 100 ML BAG EPI PRN (15:14)
[2019-06-21] MEDS ORDERED: ePHEDrine sulfate 50 MG/ML AMP IV PRN (15:14)
[2019-06-21] MEDS ORDERED: NALOXONE HCL 1 MG in SODIUM CHLORIDE 0.9% 1000ML 1,000 ML IV PRN (15:14)
[2019-06-21] MEDS ORDERED: DiphenhydrAMINE HCL 50 MG/ML VIAL IV PRN (15:14)
[2019-06-21] MEDS ORDERED: ONDANSETRON INJ 2 MG/ML 2 ML VIAL IV PRN (15:14)
[2019-06-21] MEDS ORDERED: NALBUPHINE HCL INJ 10 MG/ML AMP IV PRN (15:14)
[2019-06-21] MEDS ORDERED: NALOXONE HCL 0.4 MG/1 ML VIAL/CARP IV PRN (15:14)
--- NOTE | 2019-06-21 15:16 | Anesthesiology Consultation ---
Date of Service June 21, 2019 Assessment & Plan Chart Review Chart Review: Acceptable Risk for Surgery and Patient NOT seen in Pre Admission Testing Consults Requested none ASA ASA2 Proposed Anesthesia Anesthesia Type: Labor Epidural Risk / Benefits Reviewed With: PT / POA / Parent / Guardian, Accepts Plan and Informed Consent Obtained History Height/Weight Height: 5 ft 5 in Weight: 113.398 kg Allergies Allergy/AdvReac Type Severity Reaction Status Date / Time No Known Allergies Allergy Verified 06/19/19 11:40 Medications Home Medications Medication Instructions Recorded Confirmed Last Taken PNV cmb#95-ferrous fumarate-FA 1 tab PO DAILY 06/21/19 06/21/19 06/20/19 10:00 [] Active Medications Generic Name Dose Route Start Last Admin Trade Name Freq PRN Reason Stop Dose Admin Lactated Ringer's 1,000 mls @ 125 mls/hr 06/21/19 08:56 06/21/19 14:59 Lr IV 06/23/19 08:55 999 mls/hr .Q8H PRN Administration L&D Protocol Protocol Oxytocin 30 units in 500 mls @ 17 mls/hr 06/21/19 08:56 06/21/19 14:15 Pitocin IV 06/23/19 08:55 1.02 units/hr .Q24H PRN 17 mls/hr Labor Induction/Augmentation Titration Protocol 1.02 UNITS/HR NPO Date Last Intake of Fluids: 06/21/19 Time Last Intake of Fluids: 15:00 Date Last Intake of Solids: 06/21/19 Time Last Intake of Solids: 04:30 Past Medical History Medical History Abnormal biochemical finding on screening of mother Cervical cancer screening Encounter for anatomic survey Varicella vaccine Exercise / Class Metabolic Activity II 4-5 Yardwork/Stairs/Walk up hill Past Family History Family History Grandmother (Maternal) Diabetes Ovarian cancer Father Hypertension Hypercholesteremia Grandmother (Paternal) Kidney disease Mother Kidney stone Family/Other Breast cancer Multiple gestation Grandfather (Paternal) Drinking problem Past Surgical History Surgical History S/P wisdom tooth extraction Past Anesthesia History No Hx of Anesthesia Complications and No Family Hx of Anesthesia Complications History of PONV No Hx of PONV and No Hx of Motion Sickness Social History Smoking Status: Never smoker Hx Alcohol Use: No Hx Substance Use: No Physical Exam Vital Signs Last Vital Signs Temp 36.6 C 06/21/19 14:16 Pulse 88 06/21/19 15:12 Resp 18 06/21/19 14:16 BP 127/63 06/21/19 15:12 Pulse Ox 99 06/21/19 15:11 ENMT Mouth: no dentition abnormality Thyromental Distance: > or= 3.5 Finger Breadths Mallampati Class: II Neck normal visual inspection Respiratory normal respiratory effort Auscultation: lungs clear to auscultation bilaterally Cardiovascular Rate/Rhythm: regular rate and regular rhythm Psychiatric Orientation: alert Testing Laboratory Results 06/21/19 09:27
--- NOTE | 2019-06-21 18:10 | Labor Progress Brief Note ---
Date of Service June 21, 2019 Subjective Comfortable with epidural Assessment & Plan (1) Encounter for elective induction of labor: Cont curr mgmt Physical Exam Physical Exam: Checked by RN, 6cm/0station FHT Cat 1 [employer] Q2 Results & Data Vital Signs (Past 12 Hours) Vital Signs Temp Pulse Resp BP Pulse Ox 06/21/19 18:06 82 100 06/21/19 18:01 83 100 06/21/19 17:58 82 143/82 H 06/21/19 17:56 90 100 06/21/19 17:51 90 100 06/21/19 17:46 72 100 06/21/19 17:44 73 110/62 06/21/19 17:41 74 100 06/21/19 17:36 94 H 95 06/21/19 17:31 64 97 06/21/19 17:30 69 92/50 L 06/21/19 17:26 64 97 06/21/19 17:21 65 97 06/21/19 17:16 65 98 06/21/19 17:13 64 92/55 L 06/21/19 17:11 61 97 06/21/19 17:06 66 98 06/21/19 17:01 64 98 06/21/19 16:59 64 100/51 L 06/21/19 16:56 66 99 06/21/19 16:51 65 99 06/21/19 16:46 63 100 06/21/19 16:44 69 107/59 L 06/21/19 16:41 67 100 06/21/19 16:36 68 100 06/21/19 16:31 71 100 06/21/19 16:29 65 107/62 06/21/19 16:26 83 99 06/21/19 16:21 69 100 06/21/19 16:16 79 100 06/21/19 16:13 77 100/56 L 06/21/19 16:11 82 100 06/21/19 16:06 65 100 06/21/19 16:01 84 99 06/21/19 15:59 98.1 F 78 20 103/63 06/21/19 15:56 74 99 06/21/19 15:51 81 100 06/21/19 15:46 71 100 06/21/19 15:43 93 H 108/60 06/21/19 15:41 80 99 06/21/19 15:38 78 112/64 06/21/19 15:36 74 100 06/21/19 15:34 79 20 116/66 06/21/19 15:31 77 100 06/21/19 15:28 83 115/57 L 06/21/19 15:26 77 100 06/21/19 15:24 79 113/58 L 06/21/19 15:21 89 99 06/21/19 15:19 88 116/64 06/21/19 15:16 85 99 06/21/19 15:12 88 127/63 06/21/19 15:11 89 123/58 L 99 06/21/19 15:09 75 118/64 06/21/19 15:07 86 108/61 06/21/19 15:06 81 99 06/21/19 15:05 83 123/58 L 06/21/19 15:03 99 H 126/75 06/21/19 15:01 74 99 06/21/19 15:00 75 129/80 06/21/19 14:56 93 H 100 06/21/19 14:53 80 92 06/21/19 14:51 79 98 06/21/19 14:35 81 20 120/79 06/21/19 14:16 97.9 F 81 18 115/61 06/21/19 13:35 92 H 118/78 06/21/19 12:35 86 18 128/77 06/21/19 11:37 69 110/53 L 06/21/19 10:35 65 125/74 06/21/19 09:26 88 123/74 06/21/19 08:10 74 133/87 06/21/19 07:53 98.1 F 90 20 139/81 06/21/19 07:41 90 139/81 Coding Level of Care Code None Diagnoses Encounter for elective induction of labor Z34.90
--- NOTE | 2019-06-21 18:41 | Delivery Summary ---
Vaginal Delivery Summary Date of Service June 21, 2019 Vaginal Delivery Summary DIAGNOSES: 1. Adorno intrauterine at 39w1d gestation. 2. Induction of Labor, Elective. 3. Group B Streptococcus Neg. PROCEDURE: Spontaneous vaginal delivery without laceration. SURGEON: Estefani Arteaga MD. DENTAL ASSISTANT: None. ESTIMATED BLOOD LOSS: 350 mL. COMPLICATIONS: None. PLACENTA: Spontaneous and intact with a 3-vessel cord. DISPOSITION: Stable to labor and delivery. DESCRIPTION: The patient pushed well and brought the head to in OA position. The 's head was allowed to deliver with contraction force and no further active pushing, with the perineum protected during this time. The next maternal push failed to deliver the shoulders. The shoulders then delivered with the next maternal pushing effort augmented by Lisa and suprapubic pressure. There was no nuchal cord. The right shoulder was anterior. The body delivered without further difficulty. The was vigorous and moving all extremities, and making respiratory efforts. The cord was doubly clamped by the MD and then cut by the FOB. The placenta delivered spontaneously and was noted to be intact and with a 3VC. The cervix, vagina and perineum were examined and were found to be without defect requiring repair. The fundus was firm and lochia minimal immediately after delivery.
[2019-06-21] MEDS ORDERED: ACETAMINOPHEN 325 MG TAB PO PRN (18:46)
[2019-06-21] MEDS ORDERED: DIPHTHERIA/TETANUS/PERTUSSIS 0.5 ML SYR/VIAL IM ONE (18:46)
[2019-06-21] MEDS ORDERED: OXYCODONE/ACETAMINOPHEN 5mg/325mg TAB PO PRN (18:46)
[2019-06-21] MEDS ORDERED: HYDROCORTISONE ACETATE 25 MG SUPP PR PRN (18:46)
[2019-06-21] MEDS ORDERED: BENZOCAINE 20% AER SPR 82.5 GM CAN EXT PRN (18:46)
[2019-06-21] MEDS ORDERED: SUPERCREAM 0.870% 15 GM JAR EXT PRN (18:46)
--- NOTE | 2019-06-21 18:54 | Anesthesiology Progress Note ---
Date of Service June 21, 2019 Anesthesia Post Procedure Vital Signs Vital Signs: Temp Pulse Resp BP Pulse Ox 06/21/19 18:43 97 H 20 141/87 H 06/21/19 18:38 93 H 145/76 H 06/21/19 18:26 140 H 100 06/21/19 18:23 119 H 88 L 06/21/19 18:21 95 H 100 06/21/19 18:16 100 H 100 06/21/19 18:13 108 H 141/88 H 06/21/19 18:11 88 100 06/21/19 18:06 82 100 06/21/19 18:01 83 100 06/21/19 17:58 36.7 C 82 20 143/82 H 06/21/19 17:56 90 100 06/21/19 17:51 90 100 06/21/19 17:46 72 100 06/21/19 17:44 73 110/62 06/21/19 17:41 74 100 06/21/19 17:36 94 H 95 06/21/19 17:31 64 97 06/21/19 17:30 69 92/50 L 06/21/19 17:26 64 97 06/21/19 17:21 65 97 06/21/19 17:16 65 98 06/21/19 17:13 64 92/55 L 06/21/19 17:11 61 97 06/21/19 17:06 66 98 06/21/19 17:01 64 98 06/21/19 16:59 64 100/51 L 06/21/19 16:56 66 99 06/21/19 16:51 65 99 06/21/19 16:46 63 100 06/21/19 16:44 69 107/59 L 06/21/19 16:41 67 100 06/21/19 16:36 68 100 06/21/19 16:31 71 100 06/21/19 16:29 65 107/62 06/21/19 16:26 83 99 06/21/19 16:21 69 100 06/21/19 16:16 79 100 06/21/19 16:13 77 100/56 L 06/21/19 16:11 82 100 06/21/19 16:06 65 100 06/21/19 16:01 84 99 06/21/19 15:59 36.7 C 78 20 103/63 06/21/19 15:56 74 99 06/21/19 15:51 81 100 06/21/19 15:46 71 100 06/21/19 15:43 93 H 108/60 06/21/19 15:41 80 99 06/21/19 15:38 78 112/64 06/21/19 15:36 74 100 06/21/19 15:34 79 20 116/66 06/21/19 15:31 77 100 06/21/19 15:28 83 115/57 L 06/21/19 15:26 77 100 06/21/19 15:24 79 113/58 L 06/21/19 15:21 89 99 06/21/19 15:19 88 116/64 06/21/19 15:16 85 99 06/21/19 15:12 88 127/63 06/21/19 15:11 89 123/58 L 99 06/21/19 15:09 75 118/64 06/21/19 15:07 86 108/61 06/21/19 15:06 81 99 06/21/19 15:05 83 123/58 L 06/21/19 15:03 99 H 126/75 06/21/19 15:01 74 99 06/21/19 15:00 75 129/80 06/21/19 14:56 93 H 100 06/21/19 14:53 80 92 06/21/19 14:51 79 98 06/21/19 14:35 81 20 120/79 06/21/19 14:16 36.6 C 81 18 115/61 06/21/19 13:35 92 H 118/78 06/21/19 12:35 86 18 128/77 06/21/19 11:37 69 110/53 L 06/21/19 10:35 65 125/74 06/21/19 09:26 88 123/74 06/21/19 08:10 74 133/87 06/21/19 07:53 36.7 C 90 20 139/81 06/21/19 07:41 90 139/81 Transfer of Care Handoff Completed per policy Notes Mental Status: alert / awake / arousable and participated in evaluation Patient Amnestic to Procedure: No Nausea / Vomiting: adequately controlled Pain: adequately controlled Airway Patency, RR, SpO2: stable & adequate BP & HR: stable & adequate Hydration State: stable & adequate Neuraxial Anesthesia: was administered and sensory block is resolving Anesthetic Complications: no major complications apparent and Pt Satisfied with anesthetic care
[2019-06-21] MEDS: DOCUSATE SODIUM 100 MG CAP PO SCH (20:04)
[2019-06-21] MEDS: IBUPROFEN 600 MG TAB PO PRN (20:06)
[2019-06-22] MEDS: IBUPROFEN 600 MG TAB PO PRN ×4 (04:10→22:02)
[2019-06-22 06:28] LABS: Hemoglobin 11.3 g/dL (12.0-16.0); Mean Corpuscular Hemoglobin 26.3 pg (25-34); Mean Corpuscular Hgb Conc 33.2 g/dL (32-36); Mean Corpuscular Volume 79.3 fL (80-100); Mean Platelet Volume 10.3 fL (7.4-10.4); Platelet Count 210 K/uL (130-400); RDW Coefficient of Variation 14.2 % (11.5-14.5); RDW Standard Deviation 39.9 fL (36.4-46.3); Red Blood Count 4.29 M/uL (4.2-5.4); White Blood Count 10.03 K/uL (4.8-10.8)
--- NOTE | 2019-06-22 06:51 | Obstetrical Progress Note ---
Date of Service June 22, 2019 Assessment & Plan (1) state: Recovering well PPD1, routine pp care. Subjective Ambulation: ambulating normally Voiding: no voiding problems Passing Gas:: Yes Diet Tolerance:: regular diet Lochia:: Small Feeding Type:: breast feeding Physical Exam Constitutional WD/WN, vitals as above Eyes PERRL, conjunctivae normal, anicteric sclerae Neck normal visual inspection Respiratory normal respiratory effort and able to speak in complete sentences; no respiratory distress and no labored breathing Cardiovascular Rate/Rhythm: regular rate and regular rhythm Extremities: no edema Chest (Breasts) Chest: normal inspection of chest Gastrointestinal (Abdomen) Inspection/Auscultation: abdomen normal to inspection Soft, postgravid Psychiatric A+Ox3, euthymic affect Genitourinary OB Exam Abdomen: + fundal height Fundus: + firm and + relation to umbilicus (fundus just below umbilicus); not tender Results & Data Vital Signs (Past 12 Hours) Vital Signs Temp Pulse Pulse Resp BP BP Pulse Ox 06/22/19 03:25 98.2 F 86 14 115/65 06/21/19 23:20 98.2 F 76 16 121/75 98 06/21/19 21:05 98.6 F 82 16 121/73 06/21/19 20:43 98.4 F 96 H 20 137/79 06/21/19 20:28 82 130/72 06/21/19 20:13 79 20 117/65 06/21/19 19:58 96 H 127/67 06/21/19 19:43 94 H 20 123/58 L 06/21/19 19:28 85 18 143/62 H 06/21/19 19:13 98.1 F 93 H 20 131/78 06/21/19 18:58 76 128/68
[2019-06-22] MEDS: DOCUSATE SODIUM 100 MG CAP PO SCH ×2 (07:53→20:18)
[2019-06-22] MEDS: PRENATAL VITAMIN 1 TAB PO SCH (07:53)
--- NOTE | 2019-06-23 07:15 | Obstetrical Progress Note ---
Date of Service June 23, 2019 Assessment & Plan (1) state: PPD 2 meets criteria home Subjective Ambulation: ambulating normally Voiding: no voiding problems Passing Gas:: Yes Diet Tolerance:: regular diet Lochia:: Small Feeding Type:: bottle feeding Physical Exam Constitutional WD/WN, vitals as above Genitourinary normal external appearance (Ext eng) Results & Data Vital Signs (Past 12 Hours) Vital Signs Temp Pulse Pulse Resp BP BP 06/23/19 00:20 98.1 F 78 16 118/82 06/22/19 19:30 98.2 F 65 18 106/70
[2019-06-23] MEDS: PRENATAL VITAMIN 1 TAB PO SCH (07:21)
[2019-06-23] MEDS: IBUPROFEN 600 MG TAB PO PRN (07:21)
[2019-06-23] MEDS: DOCUSATE SODIUM 100 MG CAP PO SCH (07:21)
== END 2019-06-23 12:35 | disposition home or self-care (01) | DRG 807 ==
LOC: 4S1 07:33 → 4S2 21:08